=== PATIENT | male | born 1930 | race Caucasian/White ===

== ENCOUNTER 2017-08-07 15:51 | Inpatient (IN) ==
[2017-08-07 17:04] LABS: Basophils % 0.1 % (0.1-2.0); Eosinophils % 0.4 % (0.1-12.0); Hematocrit 52.3 % (42.0-52.0); Hemoglobin 16.5 g/dL (14.1-18.0); Lymphocytes % 11.3 K/mm3 (10-50); Mean Corpuscular HGB Conc 31.6 g/dL (31.8-35.4); Mean Corpuscular Hemoglobin 26.4 pg (27.0-31.2); Mean Corpuscular Volume 83.6 fl (80-94); Monocytes # 0.5 K/mm3 (0.1-1.0); Monocytes % 5.6 % (1.7-9.3); Neutrophils # 7.1 K/mm3 (1.8-7.8); Neutrophils % 82.6 % (37.0-80.0); Platelet Count 179 K/mm3 (142-424); Red Blood Count 6.26 M/mm3 (4.60-6.20); Red Cell Distribution Width 15.8 % (11.5-17.5); White Blood Count 8.6 K/mm3 (4.8-10.8)
[2017-08-07 17:14] LABS: Albumin Level 3.4 gm/dL (3.4-5.0); Albumin/Globulin Ratio 1.2 (1.1-1.8); Anion Gap 16.2 mEq/L (5-15); Bilirubin,Total 1.9 mg/dL (0.2-1.0); Calcium 9.5 mg/dL (8.5-10.1); Globulin 2.8 gm/dl (1.3-3.2); Total Protein,Serum 6.2 gm/dL (6.4-8.2)
[2017-08-07 17:17] LABS: Potassium 4.2 mmoL/L (3.5-5.1)
[2017-08-07 17:29] LABS: Thyroid Stimulating Hormone 7.96 uIU/ml (0.358-3.740)
--- NOTE | 2017-08-07 18:30 | Emergency Department Note ---
ED Disposition Clinical Impression: Rapid atrial fibrillation Disposition: Admitted As Inpatient Condition on Discharge: Fair Time of Disposition: 18:27 - Critical Care Critical Care Time: Yes Attestation: On 08/07/17, the high probability of a clinically significant, sudden or life threatening deterioration of the following system(s) required my full and direct attention, intervention and personal management. The time I documented below is in addition to time spent performing reported procedures but includes the following listed in this critical care notation. Total Critical Care Time: 75 Vital system(s) involved:: Circulatory Failure My critical care processes included: Assessment & monitoring of V/S, Initial and Re-exams, Data Review/Interpretation, Coordinating Care, Medication Orders and management, Documentation Medical Decision Making - Medical Records Medical records reviewed: Yes: I reviewed the patient's medical records. - [place] Inquiry Pt receiving controlled substance: No Vital Signs: 08/07/17 15:54 Temperature 97.4 F L Temperature Source Oral Pulse Rate [Right Radial] 124 H Respiratory Rate 20 Blood Pressure [Right Arm] 157/79 Blood Pressure Mean [Right Arm] 105 Blood Pressure Source [Right Arm] Automatic Cuff Blood Pressure Position [Right Arm] Sitting 02 Sat by Pulse Oximetry 95 Oxygen Delivery Method Room Air - Lab Data Lab results reviewed: Yes: I reviewed the patient's lab results. Lab Results 08/07/17 16:44: WBC 8.6, RBC 6.26 H, Hgb 16.5, Hct 52.3 H, MCV 83.6, MCH 26.4 L , MCHC 31.6 L, RDW 15.8, Plt Count 179, MPV 9.0, Neut % (Auto) 82.6 H, Lymph % ( Auto) 11.3, [place] % (Auto) 5.6, Eos % (Auto) 0.4, Baso % (Auto) 0.1, Neut # (Auto ) 7.1, Lymph # (Auto) 1.0, [place] # (Auto) 0.5, Eos # (Auto) 0.0, Baso # (Auto) 0.0 08/07/17 16:44: Sodium 141, Potassium 4.2, Chloride 105, Carbon Dioxide 24, Anion Gap 16.2 H, BUN 33 H, Creatinine 1.46 H, Estimated Creat Clear 39, Estimated GFR 46 L, Est GFR ( Amer) 56 L, Glucose 112 H, Calcium 9.5, Total Bilirubin 1.9 H, AST 26, ALT 31, Alkaline Phosphatase 90, Total Protein 6.2 L, Albumin 3.4, Globulin 2.8, Albumin/Globulin Ratio 1.2 08/07/17 16:44: Digoxin 0.23 L 08/07/17 16:44: Total Creatine Kinase 109, CK-MB (CK-2) 3.2, CK-MB (CK-2) Rel Index 2.9, Troponin I 0.09 H, TSH 7.96 H Result diagrams: 08/07/17 16:44 08/07/17 16:44 Orders (Tests/Meds): ED MEDICATIONS Generic Name Dose Route Start Last Admin Trade Name Freq PRN Reason Stop Dose Admin Diltiazem HCl 100 mg/ Sodium 100 mls @ 2.5 mls/hr 08/07/17 18:30 Chloride IV 09/06/17 18:29 .Q25H RADHA Protocol Discontinued Medications Generic Name Dose Route Start Last Admin Trade Name Freq PRN Reason Stop Dose Admin Sodium Chloride 1,000 mls @ 999 mls/hr 08/07/17 16:45 Sod Chlor 0.9% 1000ml Bag IV 08/07/17 17:45 .Q1H1M RADHA ORDERS Category Date Time Status Chest XR -- portable [XR chest portable] Stat Exams 08/07/17 16:29 Taken ECG Request by /Hao Stat Y 08/07/17 16:29 Ordered - Radiology Data #1 Image(s): Chest Image Reviewed: Yes I reviewed the patient's radiology results, Yes I reviewed the patient's radiology image - ECG Data Tracing #1 I reviewed this ECG and interpreted as documented below: Atrial fibrillation, heart rate 124, no acute ischemic changes Normal Sinus Rhythm: No Arrhythmias present: afib - Physician Consults Physician Consulted: Dr. Erick Silva Time: 18:28 Reason -: Admission, Pt condition Comment/Response: Advised of patient's condition and findings, agreeable with hospitalization. Dr. Silva requested the digoxin to be put on hold, and patient is to diltiazem. Will obtain cardiology consultation, at same time. Anxiety HPI - General Chief Complaint: Anxiety Stated Complaint: PANIC ATTACKS Time Seen by Provider: 08/07/17 16:30 Mode of Arrival: EMS Limitations: No Limitations Description of Symptoms (Recalled from ER Triage Doc. by RN): PT STATES HE HAS BEEN HAVING PANIC ATTACKS. PT IS KNOWN TO HAVE DEMENTIA AND PT'S SON THAT LIVES IN [place] CALLED THE [facility] TO COME DO A [employer] CHECK ON THE PT AND HE WAS BROUGHT TO THE ER FOR THE PANIC ATTACKS. - History of Present Illness HPI narrative: Patient is an 86-year-old noncompliant male, living by himself, presenting to the emergency room with occasional chest pains and exertional shortness of breath, describing fear of passing out, his anxiety and palpitations. Patient's physician, Dr. Silva, advised the patient has been declining over the past 6 months, where she was diagnosed with Parkinson's and dementia. It is questionable if patient has been compliant on his medications. MD complaint: heart racing, shortness of breath, other (Chest pain) Onset (ago): day(s) (2) Symptoms: dyspnea, chest pain, palpitations Severity: moderate Quality: intermittent Place: home History of similar episodes: Yes Provoking factors: emotional stress Relieving factors: nothing Exacerbating factors: thinking about event Associated symptoms: chest pain, shortness of breath, palpitations - Related Data Home Medications: Home Medications Medication Instructions Recorded Confirmed ARIPiprazole [Abilify] 4 mg PO HS 08/07/17 08/07/17 Aspirin [Aspirin 81mg chewable 81 mg PO DAILY 08/07/17 08/07/17 tab] Carbidopa/Levodopa [Carbidopa-Levo 1 each PO BID 08/07/17 08/07/17 25-100 mg Odt] Digoxin [Digoxin 0.125mg Tablet] 125 mcg PO DAILY 08/07/17 08/07/17 Donepezil HCl [Aricept 10mg tablet] 10 mg PO HS 08/07/17 08/07/17 Finasteride [Proscar 5mg Tablet] 5 mg PO DAILY 08/07/17 08/07/17 Levothyroxine Sodium 88 mcg PO DAILY 08/07/17 08/07/17 [Levothyroxine 75mcg (0.075mg) Tab] Pravastatin Sodium [Pravachol 20mg 20 mg PO HS 08/07/17 08/07/17 Tablet] Sertraline HCl [Zoloft 100mg 50 mg PO DAILY 08/07/17 08/07/17 tablet] Tamsulosin HCl [Flomax 0.4mg 0.4 mg PO DAILY 08/07/17 08/07/17 capsule] Allergies/Adverse Reactions: Allergies Allergy/AdvReac Type Severity Reaction Status Date / Time No Known Allergies Allergy Verified 08/07/17 16:03 [facility] History I have reviewed the patient's past medical history: Yes Medical History: Denies:: Cancer, Diabetes Mellitus Type 1, Diabetes Mellitus Type 2, MRSA Amputation: No Fractures: No - Social History Smoking Status: Never smoker Alcohol Intake: never - Psychiatric History Expresses thoughts of harming self/others: None Suicide Plan Description: No Plan ROS Obtained: Yes All systems reviewed & no additional complaints, Yes Systems reviewed as appropriate & no additional complaints - Cardiovascular Cardiovascular: Reports system reviewed and no additional complaints, except as docu, Reports as per HPI, Reports chest pain - Respiratory Respiratory: Yes system reviewed and no additional complaints, except as docu, Yes as per HPI, Yes dyspnea on exertion Physical Exam - General General appearance: alert, in distress (mild) - Head Head exam: atraumatic, normocephalic, normal inspection - Neck Neck exam: Present: normal inspection, full ROM, trachea midline. Absent: meningismus, lymphadenopathy - Chest Chest inspection: Present: normal inspection, symmetric chest wall rise. Absent : tenderness - Respiratory Respiratory exam: Present: normal lung sounds bilaterally. Absent: respiratory distress - Cardiovascular Cardiovascular exam: Present: tachycardia, irregular rhythm. Absent: JVD - Abdominal Exam Abdominal exam: Present: soft, normal bowel sounds. Absent: distention, tenderness, guarding - Extremities Exam Extremities exam: Present: normal inspection, full ROM, normal capillary refill. Absent: calf tenderness - Neurological Exam Neurological exam: Present: alert, oriented X3 - Psychiatric Psychiatric exam: Present: normal affect, normal mood - Skin Skin exam: Present: warm, dry, intact, normal color - Lymphatic Lymphatic Findings: no adenopathy
--- NOTE | 2017-08-07 22:49 | Progress Note ---
Internal Medicine - PN: Subj *Date: 08/07/17 *Time: 22:43 Interval history: The patient was admitted this evening through the emergency room. To the ER description he was uncomfortable having some chest pain felt short of breath and his heart was racing. He was found to be in uncontrolled atrial fibrillation with rapid ventricular response. He was treated with Cardizem in the emergency room which resulted in a slowing of his heart rate. He was admitted to the medical floor. I saw the patient after admission. He is without discomfort. He does seem to have some confusion but he does not hear very well. He responded for the most appropriately. He is not in any discomfort. The heart rate has slowed to the 70s and 80s. There are some runs of dysrhythmia that could be junctional or V. tach. There is some elevation of troponin The patient has declined over the past several months regarding his health. He is noncompliant on his medications. His home situation is bad with other people being in the household including relatives and others. He is hypothyroid and suffers from anxiety and depression. His atrial fibrillation has been long-standing. In 2012 he suffered a debilitating stroke and gradually was able to recover from that. He takes Xarelto 20 mg a day. He has been on diltiazem in the past but is not currently taking diltiazem. He is supposed to take digoxin daily but his blood levels were low. He takes donepezil 10 mg at bedtime. He has some parkinsonian symptoms and takes carbidopa levodopa 25/100 one tablet twice a day. He takes pravastatin 20 mg at bedtime. He is taking Abilify also 4 mg at bed time. Exam Vital signs and Labs for Last 24 Hours: Temp Pulse Resp BP Pulse Ox 98.6 F 70 22 142/89 100 08/07/17 20:00 08/07/17 20:00 08/07/17 20:00 08/07/17 20:00 08/07/17 20:00 Laboratory Results - last 24 hr 08/07/17 16:44: WBC 8.6, RBC 6.26 H, Hgb 16.5, Hct 52.3 H, MCV 83.6, MCH 26.4 L , MCHC 31.6 L, RDW 15.8, Plt Count 179, MPV 9.0, Neut % (Auto) 82.6 H, Lymph % ( Auto) 11.3, [place] % (Auto) 5.6, Eos % (Auto) 0.4, Baso % (Auto) 0.1, Neut # (Auto ) 7.1, Lymph # (Auto) 1.0, [place] # (Auto) 0.5, Eos # (Auto) 0.0, Baso # (Auto) 0.0 08/07/17 16:44: Sodium 141, Potassium 4.2, Chloride 105, Carbon Dioxide 24, Anion Gap 16.2 H, BUN 33 H, Creatinine 1.46 H, Estimated Creat Clear 39, Estimated GFR 46 L, Est GFR ( Amer) 56 L, Glucose 112 H, Calcium 9.5, Total Bilirubin 1.9 H, AST 26, ALT 31, Alkaline Phosphatase 90, Total Protein 6.2 L, Albumin 3.4, Globulin 2.8, Albumin/Globulin Ratio 1.2 08/07/17 16:44: Digoxin 0.23 L 08/07/17 16:44: Total Creatine Kinase 109, CK-MB (CK-2) 3.2, CK-MB (CK-2) Rel Index 2.9, Troponin I 0.09 H, TSH 7.96 H 08/07/17 19:32: Troponin I 0.10 H I & O for Last 24 hours: Intake & Output 08/05/17 08/06/17 08/07/17 08/08/17 11:59 11:59 11:59 11:59 Weight 189 lb 6 oz - Constitutional no acute distress Comments: He recognizes me. - *Routine HEENT Exam Eye: Present: PERRL ENT: Present: mucous membranes moist - *Routine Respiratory Exam Present: CTA bilaterally - *Routine Cardiovascular Exam Present: irregular rhythm (70-80 bpm at the present time with ectopics coming through occasionally.) - *Routine Abdominal Exam Present: soft. Absent: tenderness - *Routine Extremities Exam Absent: edema - *Routine Neurological Exam Seems to be fairly intact at the present time. Hearing is poor. Assessment and Plan (1) Rapid atrial fibrillation Current visit: Yes Status: Acute Category: Medical Code(s): I48.91 - Unspecified atrial fibrillation (2) Elevated troponin Current visit: Yes Status: Acute Category: Medical Code(s): R74.8 - Abnormal levels of other serum enzymes (3) Hypothyroidism (acquired) Current visit: Yes Status: Chronic Category: Medical Code(s): E03.9 - Hypothyroidism, unspecified (4) Chronic atrial fibrillation Current visit: Yes Status: Chronic Category: Medical Code(s): I48.2 - Chronic atrial fibrillation (5) Depression with anxiety Current visit: Yes Status: Chronic Category: Medical Code(s): F41.8 - Other specified anxiety disorders - Assessment and plan all Dx Assessment and Plan for all problems:: He has responded to the intravenous diltiazem. Medications will be adjusted tomorrow. Cardiac consult has been ordered.
[2017-08-07 23:59] LABS: Amphetamine/Metha Screen,Urine Negative ng/mL (<1000); Barbiturates Screen,Urine Negative ng/mL (<200); Benzodiazepines Screen,Urine Negative ng/mL (200); Cannabinoid Screen,Urine Negative ng/mL (<50); Cocaine Screen,Urine Negative ng/g (<300); Methadone Screen,Urine Negative ng/mL (<300); Opiate Screen,Urine Negative ng/mL (<300); Phencyclidine Screen,Urine Negative ng/mL (<25)
--- NOTE | 2017-08-08 07:48 | Pharmacy Consult Notes ---
[facility] Pharmacy VTE Monitoring - Patient Demographics Admission date: 08/07/17 Report Date: 08/08/17 Time: 07:47 Allergies/Adverse Reactions: Patient Allergies No Known Allergies Allergy (Verified 08/07/17 21:54) Height: 1.88 m Weight: 85.899 kg Patient Problems: Current Active Problems Rapid atrial fibrillation (Acute) Elevated troponin (Acute) Hypothyroidism (acquired) (Chronic) Chronic atrial fibrillation (Chronic) Depression with anxiety (Chronic) - VTE Risk Labs: VTE Related Lab Results Hgb 16.5 g/dL (14.1-18.0) 08/07/17 16:44 Hct 52.3 % (42.0-52.0) H 08/07/17 16:44 Plt Count 179 K/mm3 (142-424) 08/07/17 16:44 BUN 33 mg/dL (7-18) H 08/07/17 16:44 Creatinine 1.46 mg/dL (0.70-1.30) H 08/07/17 16:44 Estimated Creat Clear 39 mL/min (0-300) 08/07/17 16:44 Was VTE Risk Assessment Performed: No VTE Risk Level: Low Risk - Prophylaxis VTE Prophylaxis Ordered?: Yes Types of VTE Prophylaxis: TEDS Knee High, Pharmacological Location of Applied Device: Bilateral Lower Extremeties Pharmacologic Type: Other (XARELTO) - VTE Diagnosis Confirmed Treatment or plan recommended: Continue Current Treatment
--- NOTE | 2017-08-08 08:51 | Consult Report ---
History of Present Illness Consult date: 08/08/17 Requesting physician: Krissy Silva Consult reason: atrial fibrillation Chief complaint: anxiety, chest discomfort, palpitations Additional Medical History:: 1. Atrial fibrillation, chronic, on Xarelto therapy. 2. Dementia with history of previous CVA 3. Parkinson's per records 4. Depression per records History of present illness: Patient is an 86-year-old noncompliant male, living by himself, presenting to the emergency room with occasional chest pains and exertional shortness of breath, describing fear of passing out, his anxiety and palpitations. Patient's physician, Dr. Silva, advised the patient has been declining over the past 6 months, where she was diagnosed with Parkinson's and dementia. It is questionable if patient has been compliant on his medications. The above per ER physician Dr. Ochoa The patient is not a good historian. He is sleeping but will awaken to verbal and physical stimuli. He answers about 1 question maybe 2 before going back to sleep. The patient denies any chest pain. [facility] History Medical History: Reports:: Atrial Fibrillation, Hypertension Denies:: Cancer, Diabetes Mellitus Type 1, Diabetes Mellitus Type 2, Internal Pacemaker, MRSA Other Surgeries: No: Pacemaker Amputation: No Fractures: No - *Social History Smoking Status: Never smoker Alcohol Intake: never Occupational Status: unemployed - Psychiatric History Expresses thoughts of harming self/others: None Suicide Plan Description: No Plan *Family Hx:: Unable to obtain Meds Home Medications Medication Instructions Recorded Confirmed Type ARIPiprazole [Abilify] 4 mg PO HS 08/07/17 08/07/17 History Carbidopa/Levodopa [Carbidopa-Levo 1 each PO BID 08/07/17 08/07/17 History 25-100 mg Odt] Digoxin [Digoxin 0.125mg Tablet] 125 mcg PO DAILY 08/07/17 08/07/17 History Donepezil HCl [Aricept 10mg tablet] 10 mg PO HS 08/07/17 08/07/17 History Finasteride [Proscar 5mg Tablet] 5 mg PO DAILY 08/07/17 08/07/17 History Levothyroxine Sodium 88 mcg PO DAILY 08/07/17 08/07/17 History [Levothyroxine 75mcg (0.075mg) Tab] Pravastatin Sodium [Pravachol 20mg 20 mg PO HS 08/07/17 08/07/17 History Tablet] Sertraline HCl [Zoloft 100mg 50 mg PO DAILY 08/07/17 08/07/17 History tablet] Tamsulosin HCl [Flomax 0.4mg 0.4 mg PO DAILY 08/07/17 08/07/17 History capsule] ALPRAZolam [Xanax 0.5mg tab] 0.25 mg PO 0900,1200 PRN 08/08/17 08/08/17 History ALPRAZolam [Xanax 0.5mg tab] 0.5 mg PO 2100 PRN 08/08/17 08/08/17 History Fluticasone Propionate [Flonase 1 spr NS DAILY 08/08/17 08/08/17 History 50mcg nasal spray 16gm] Omeprazole [Omeprazole 20mg 20 mg PO DAILYP PRN 08/08/17 08/08/17 History Capsule] Rivaroxaban [Xarelto] 20 mg PO QPMWM 08/08/17 08/08/17 History Allergies Allergy/AdvReac Type Severity Reaction Status Date / Time No Known Allergies Allergy Verified 08/07/17 21:54 Review of Systems - Review of Systems Review of systems:: unable to obtain Exam Vital signs and Labs for Last 24 Hours: Temp Pulse Resp BP Pulse Ox 98.6 F 70 16 105/60 98 08/07/17 20:00 08/08/17 08:00 08/07/17 22:00 08/08/17 06:00 08/08/17 06:00 Laboratory Results - last 24 hr 08/07/17 16:44: WBC 8.6, RBC 6.26 H, Hgb 16.5, Hct 52.3 H, MCV 83.6, MCH 26.4 L , MCHC 31.6 L, RDW 15.8, Plt Count 179, MPV 9.0, Neut % (Auto) 82.6 H, Lymph % ( Auto) 11.3, [place] % (Auto) 5.6, Eos % (Auto) 0.4, Baso % (Auto) 0.1, Neut # (Auto ) 7.1, Lymph # (Auto) 1.0, [place] # (Auto) 0.5, Eos # (Auto) 0.0, Baso # (Auto) 0.0 08/07/17 16:44: Sodium 141, Potassium 4.2, Chloride 105, Carbon Dioxide 24, Anion Gap 16.2 H, BUN 33 H, Creatinine 1.46 H, Estimated Creat Clear 39, Estimated GFR 46 L, Est GFR ( Amer) 56 L, Glucose 112 H, Calcium 9.5, Total Bilirubin 1.9 H, AST 26, ALT 31, Alkaline Phosphatase 90, Total Protein 6.2 L, Albumin 3.4, Globulin 2.8, Albumin/Globulin Ratio 1.2 08/07/17 16:44: Digoxin 0.23 L 08/07/17 16:44: Total Creatine Kinase 109, CK-MB (CK-2) 3.2, CK-MB (CK-2) Rel Index 2.9, Troponin I 0.09 H, TSH 7.96 H 08/07/17 19:32: Troponin I 0.10 H 08/07/17 20:18: Troponin I 0.08 H 08/07/17 23:37: Urine Opiates Screen Negative, Ur Barbituates Screen Negative, Ur Phencyclidine Scrn Negative, Ur Amphetamines Screen Negative, U Methamphetamines Scrn Negative, U Benzodiazepines Scrn Negative, Urine Cocaine Screen Negative, U Marijuana (THC) Screen Negative 08/08/17 01:30: Troponin I 0.08 H I & O for Last 24 hours: Intake & Output 08/05/17 08/06/17 08/07/17 08/08/17 11:59 11:59 11:59 11:59 Intake Total 71 / 71 Output Total 400 / 400 Balance -329 / -329 Weight 189 lb 6 oz - *Routine Respiratory Exam Comments: Poor effort. - *Routine Cardiovascular Exam Present: irregularly irregular Comments: Telemetry shows atrial fibrillation with intermittent nonsustained episodes of SVT with aberrancy or V. tach. - *Routine Extremities Exam Present: edema - *Routine Neurological Exam Drowsy but awakens to verbal and physical stimuli. Assessment and Plan (1) Rapid atrial fibrillation Current visit: Yes Status: Acute Category: Medical Code(s): I48.91 - Unspecified atrial fibrillation (2) Elevated troponin Current visit: Yes Status: Acute Category: Medical Code(s): R74.8 - Abnormal levels of other serum enzymes (3) Hypothyroidism (acquired) Current visit: Yes Status: Chronic Category: Medical Code(s): E03.9 - Hypothyroidism, unspecified (4) Chronic atrial fibrillation Current visit: Yes Status: Chronic Category: Medical Code(s): I48.2 - Chronic atrial fibrillation (5) Depression with anxiety Current visit: Yes Status: Chronic Category: Medical Code(s): F41.8 - Other specified anxiety disorders - Assessment and plan all Dx Assessment and Plan for all problems:: 1. Borderline elevated troponins likely elevated due to A. fib with RVR. Will obtain echo to assess LVEF but will hold on further testing until cognitive status improves. 2. Continue rate control with combination of digoxin and low dose diltiazem as BP tolerates. 3. Medication compliance is an issue per records. 4. CHADS VASC score is at least 4 and pt is on Xarelto.
--- NOTE | 2017-08-08 09:26 | History & Physical Report ---
*Admission Date: 08/07/17 *Chief complaint: anxiety *History of present illness: - Mr Sidhu is an 86-year-old male, with a history of anxiety and depression, chronic atrial fibrillation, Parkinson's disease, and hypothyroidism who presented to the emergency room with occasional chest pains and exertional shortness of breath. He described fear of passing out, anxiety and palpitations. Patient's physician, Dr. Silva, advised that the patient had been declining over the past 6 months when he was diagnosed with Parkinson' s and dementia. It is questionable if patient has been compliant on his medications. At the time of this exam patient is nonverbal. He responds briefly with yes or no. He is extremely hard of hearing. Information is obtained from previous notes and ER record. Apparently a son stated that he had been having panic attacks and known to have dementia. This son who lives in [place] called the medical surgical tech to do a welfare check on the patient at which time he was brought to the emergency room. [facility] History Medical History: Reports:: Anxiety, Atrial Fibrillation, Cerebrovascular Accident, Dementia, Depression, Hyperlipidemia, Hypertension Denies:: Cancer, Diabetes Mellitus Type 1, Diabetes Mellitus Type 2, Internal Pacemaker, MRSA Other Medical History: Reports: Thyroid Disease Comment: Parkinson's disease Other Surgeries: Yes: Appendectomy. No: Pacemaker Amputation: No Fractures: No - *Social History Smoking Status: Never smoker Alcohol Intake: never Occupational Status: unemployed - Psychiatric History Expresses thoughts of harming self/others: None Suicide Plan Description: No Plan *Family Hx:: Unable to obtain Review of Systems - Review of Systems Review of systems:: unable to obtain Meds Home Medications Medication Instructions Recorded Confirmed Type ARIPiprazole [Abilify] 4 mg PO HS 08/07/17 08/07/17 History Carbidopa/Levodopa [Carbidopa-Levo 1 each PO BID 08/07/17 08/07/17 History 25-100 mg Odt] Digoxin [Digoxin 0.125mg Tablet] 125 mcg PO DAILY 08/07/17 08/07/17 History Donepezil HCl [Aricept 10mg tablet] 10 mg PO HS 08/07/17 08/07/17 History Finasteride [Proscar 5mg Tablet] 5 mg PO DAILY 08/07/17 08/07/17 History Levothyroxine Sodium 88 mcg PO DAILY 08/07/17 08/07/17 History [Levothyroxine 75mcg (0.075mg) Tab] Pravastatin Sodium [Pravachol 20mg 20 mg PO HS 08/07/17 08/07/17 History Tablet] Sertraline HCl [Zoloft 100mg 50 mg PO DAILY 08/07/17 08/07/17 History tablet] Tamsulosin HCl [Flomax 0.4mg 0.4 mg PO DAILY 08/07/17 08/07/17 History capsule] ALPRAZolam [Xanax 0.5mg tab] 0.25 mg PO 0900,1200 PRN 08/08/17 08/08/17 History ALPRAZolam [Xanax 0.5mg tab] 0.5 mg PO 2100 PRN 08/08/17 08/08/17 History Fluticasone Propionate [Flonase 1 spr NS DAILY 08/08/17 08/08/17 History 50mcg nasal spray 16gm] Omeprazole [Omeprazole 20mg 20 mg PO DAILYP PRN 08/08/17 08/08/17 History Capsule] Rivaroxaban [Xarelto] 20 mg PO QPMWM 08/08/17 08/08/17 History Allergies Allergy/AdvReac Type Severity Reaction Status Date / Time No Known Allergies Allergy Verified 08/07/17 21:54 Exam Vital signs and Labs for Last 24 Hours: Temp Pulse Resp BP Pulse Ox 98.6 F 70 16 105/60 98 08/07/17 20:00 08/08/17 08:00 08/07/17 22:00 08/08/17 06:00 08/08/17 06:00 Laboratory Results - last 24 hr 08/07/17 16:44: WBC 8.6, RBC 6.26 H, Hgb 16.5, Hct 52.3 H, MCV 83.6, MCH 26.4 L , MCHC 31.6 L, RDW 15.8, Plt Count 179, MPV 9.0, Neut % (Auto) 82.6 H, Lymph % ( Auto) 11.3, [place] % (Auto) 5.6, Eos % (Auto) 0.4, Baso % (Auto) 0.1, Neut # (Auto ) 7.1, Lymph # (Auto) 1.0, Bureau # (Auto) 0.5, Eos # (Auto) 0.0, Baso # (Auto) 0.0 08/07/17 16:44: Sodium 141, Potassium 4.2, Chloride 105, Carbon Dioxide 24, Anion Gap 16.2 H, BUN 33 H, Creatinine 1.46 H, Estimated Creat Clear 39, Estimated GFR 46 L, Est GFR ( Amer) 56 L, Glucose 112 H, Calcium 9.5, Total Bilirubin 1.9 H, AST 26, ALT 31, Alkaline Phosphatase 90, Total Protein 6.2 L, Albumin 3.4, Globulin 2.8, Albumin/Globulin Ratio 1.2 08/07/17 16:44: Digoxin 0.23 L 08/07/17 16:44: Total Creatine Kinase 109, CK-MB (CK-2) 3.2, CK-MB (CK-2) Rel Index 2.9, Troponin I 0.09 H, TSH 7.96 H 08/07/17 19:32: Troponin I 0.10 H 08/07/17 20:18: Troponin I 0.08 H 08/07/17 23:37: Urine Opiates Screen Negative, Ur Barbituates Screen Negative, Ur Phencyclidine Scrn Negative, Ur Amphetamines Screen Negative, U Methamphetamines Scrn Negative, U Benzodiazepines Scrn Negative, Urine Cocaine Screen Negative, U Marijuana (THC) Screen Negative 08/08/17 01:30: Troponin I 0.08 H I & O for Last 24 hours: Intake & Output 08/05/17 08/06/17 08/07/17 08/08/17 11:59 11:59 11:59 11:59 Intake Total 71 / 71 Output Total 400 / 400 Balance -329 / -329 Weight 189 lb 6 oz Radiology Reports for the Last 24 Hours: 08/07/2017 MPRESSION: Left lower lobe pneumonia with effusion with cardiomegaly - Constitutional no acute distress, somnolent - *Routine HEENT Exam Head: Present: normocephalic Eye: Present: PERRL ENT: Present: mucous membranes dry - *Routine Neck Exam Absent: carotid bruit, lymphadenopathy, thyromegaly - *Routine Respiratory Exam Comments: bilateral rhonchi > on the left - *Routine Cardiovascular Exam Present: irregular rhythm Comments: monitor showing At Fib with controled V response - *Routine Abdominal Exam Present: soft, normoactive bowel sounds. Absent: tenderness, distended - *Routine Extremities Exam Present: edema (greater on the left) - *Routine Neurological Exam somnolent H&P: Result - Labs Labs: Short CBC 08/07/17 Range/Units 16:44 WBC 8.6 (4.8-10.8) K/mm3 Hgb 16.5 (14.1-18.0) g/dL Hct 52.3 H (42.0-52.0) % Plt Count 179 (142-424) K/mm3 BMP 08/07/17 16:44 Sodium 141 Potassium 4.2 Chloride 105 Carbon Dioxide 24 BUN 33 H Creatinine 1.46 H Glucose 112 H Calcium 9.5 Cardiac Enzymes 08/07/17 08/07/17 08/07/17 Range/Units 16:44 19:32 20:18 Total Creatine Kinase 109 (39-308) U/L CK-MB (CK-2) 3.2 (0.0-3.6) ng/ml Troponin I 0.09 H 0.10 H 0.08 H (0.00-0.06) ng/ml 08/08/17 Range/Units 01:30 Total Creatine Kinase (39-308) U/L CK-MB (CK-2) (0.0-3.6) ng/ml Troponin I 0.08 H (0.00-0.06) ng/ml Liver Function 08/07/17 Range/Units 16:44 Total Bilirubin 1.9 H (0.2-1.0) mg/dL AST 26 (15-37) U/L ALT 31 (12-78) U/L Alkaline Phosphatase 90 (46-116) U/L Albumin 3.4 (3.4-5.0) gm/dL Assessment and Plan (1) Rapid atrial fibrillation Current visit: Yes Status: Acute Category: Medical Code(s): I48.91 - Unspecified atrial fibrillation (2) Elevated troponin Current visit: Yes Status: Acute Category: Medical Code(s): R74.8 - Abnormal levels of other serum enzymes (3) Hypothyroidism (acquired) Current visit: Yes Status: Chronic Category: Medical Code(s): E03.9 - Hypothyroidism, unspecified (4) Chronic atrial fibrillation Current visit: Yes Status: Chronic Category: Medical Code(s): I48.2 - Chronic atrial fibrillation (5) Depression with anxiety Current visit: Yes Status: Chronic Category: Medical Code(s): F41.8 - Other specified anxiety disorders (6) Altered mental state Current visit: Yes Status: Acute Category: Medical Code(s): R41.82 - Altered mental status, unspecified - Assessment and plan all Dx Assessment and Plan for all problems:: Cardiology has seen pt with the following recommendations: 1. Borderline elevated troponins likely elevated due to A. fib with RVR. Will obtain echo to assess LVEF but will hold on further testing until cognitive status improves. 2. Continue rate control with combination of digoxin and low dose diltiazem as BP tolerates. CXR does state that he has pneumonia. Rocephin and duonebs have been started.
--- NOTE | 2017-08-08 09:27 | Progress Note ---
Internal Medicine - PN: Subj *Date: 08/08/17 *Time: 09:23 Interval history: He is quite somnolent this morning. He does have periods where he will arouse and respond. He is receiving an echocardiogram at this time. His heart rate is in the 70s and 80s. He still atrial fibrillation. He has no respiratory distress. He has minimal leg edema. He is so noncompliant on his medications that in the hospital receiving medications he may be having sedation from that. Exam Vital signs and Labs for Last 24 Hours: Temp Pulse Resp BP Pulse Ox 98.6 F 70 16 105/60 98 08/07/17 20:00 08/08/17 08:00 08/07/17 22:00 08/08/17 06:00 08/08/17 06:00 Laboratory Results - last 24 hr 08/07/17 16:44: WBC 8.6, RBC 6.26 H, Hgb 16.5, Hct 52.3 H, MCV 83.6, MCH 26.4 L , MCHC 31.6 L, RDW 15.8, Plt Count 179, MPV 9.0, Neut % (Auto) 82.6 H, Lymph % ( Auto) 11.3, [place] % (Auto) 5.6, Eos % (Auto) 0.4, Baso % (Auto) 0.1, Neut # (Auto ) 7.1, Lymph # (Auto) 1.0, [place] # (Auto) 0.5, Eos # (Auto) 0.0, Baso # (Auto) 0.0 08/07/17 16:44: Sodium 141, Potassium 4.2, Chloride 105, Carbon Dioxide 24, Anion Gap 16.2 H, BUN 33 H, Creatinine 1.46 H, Estimated Creat Clear 39, Estimated GFR 46 L, Est GFR ( Amer) 56 L, Glucose 112 H, Calcium 9.5, Total Bilirubin 1.9 H, AST 26, ALT 31, Alkaline Phosphatase 90, Total Protein 6.2 L, Albumin 3.4, Globulin 2.8, Albumin/Globulin Ratio 1.2 08/07/17 16:44: Digoxin 0.23 L 08/07/17 16:44: Total Creatine Kinase 109, CK-MB (CK-2) 3.2, CK-MB (CK-2) Rel Index 2.9, Troponin I 0.09 H, TSH 7.96 H 08/07/17 19:32: Troponin I 0.10 H 08/07/17 20:18: Troponin I 0.08 H 08/07/17 23:37: Urine Opiates Screen Negative, Ur Barbituates Screen Negative, Ur Phencyclidine Scrn Negative, Ur Amphetamines Screen Negative, U Methamphetamines Scrn Negative, U Benzodiazepines Scrn Negative, Urine Cocaine Screen Negative, U Marijuana (THC) Screen Negative 08/08/17 01:30: Troponin I 0.08 H Laboratory Tests 08/07/17 08/07/17 16:44 16:44 WBC 8.6 Hgb 16.5 Hct 52.3 H Sodium 141 Potassium 4.2 Chloride 105 BUN 33 H Creatinine 1.46 H I & O for Last 24 hours: Intake & Output 08/05/17 08/06/17 08/07/17 08/08/17 11:59 11:59 11:59 11:59 Intake Total 71 / 71 Output Total 400 / 400 Balance -329 / -329 Weight 189 lb 6 oz Radiology Reports for the Last 24 Hours: The chest x-ray suggests a left lower lobe pneumonia with effusion. - Constitutional somnolent - *Routine Respiratory Exam Present: CTA bilaterally. Absent: respiratory distress - *Routine Cardiovascular Exam Present: irregular rhythm (70-88) - *Routine Abdominal Exam Present: soft. Absent: tenderness - *Routine Extremities Exam Present: edema Assessment and Plan (1) Rapid atrial fibrillation Current visit: Yes Status: Acute Category: Medical Code(s): I48.91 - Unspecified atrial fibrillation (2) Elevated troponin Current visit: Yes Status: Acute Category: Medical Code(s): R74.8 - Abnormal levels of other serum enzymes (3) Hypothyroidism (acquired) Current visit: Yes Status: Chronic Category: Medical Code(s): E03.9 - Hypothyroidism, unspecified (4) Chronic atrial fibrillation Current visit: Yes Status: Chronic Category: Medical Code(s): I48.2 - Chronic atrial fibrillation (5) Depression with anxiety Current visit: Yes Status: Chronic Category: Medical Code(s): F41.8 - Other specified anxiety disorders (6) Pneumonia of left lower lobe due to infectious organism Current visit: Yes Status: Acute Category: Medical Code(s): J18.1 - Lobar pneumonia, unspecified organism
[2017-08-09 06:03] LABS: Albumin Level 2.6 gm/dL (3.4-5.0); Anion Gap 12.1 mEq/L (5-15); Bilirubin,Total 1.3 mg/dL (0.2-1.0); Globulin 2.6 gm/dl (1.3-3.2); Potassium 4.1 mmoL/L (3.5-5.1); Total Protein,Serum 5.2 gm/dL (6.4-8.2)
[2017-08-09 06:13] LABS: Calcium 8.2 mg/dL (8.5-10.1)
--- NOTE | 2017-08-09 08:08 | Progress Note ---
Internal Medicine - PN: Josselin *Date: 08/09/17 *Time: 08:05 Interval history: Patient states he is feeling well this morning. He denies any pain. He states he slept off and on throughout the night. He ate all of his breakfast this morning. Exam Vital signs and Labs for Last 24 Hours: Temp Pulse Resp BP Pulse Ox 98.3 F 81 16 121/73 98 08/08/17 20:00 08/09/17 06:16 08/08/17 20:00 08/09/17 06:00 08/09/17 06:16 Laboratory Results - last 24 hr 08/09/17 05:15: Sodium 141, Potassium 4.1, Chloride 106, Carbon Dioxide 27, Anion Gap 12.1, BUN 26 H, Creatinine 1.15 D, Estimated Creat Clear 59, Estimated GFR 61, Est GFR ( Amer) 73 D, Glucose 126 H, Calcium 8.2 L D, Total Bilirubin 1.3 H, AST 16 D, ALT 22 D, Alkaline Phosphatase 78, Total Protein 5.2 L, Albumin 2.6 L, Globulin 2.6, Albumin/Globulin Ratio 1.0 L I & O for Last 24 hours: Intake & Output 08/06/17 08/07/17 08/08/17 08/09/17 11:59 11:59 11:59 11:59 Intake Total 661 / 661 740 / 740 Output Total 400 / 400 500 / 500 Balance 261 / 261 240 / 240 Weight 189 lb 6 oz 191 lb 5 oz - Constitutional no acute distress - *Routine Respiratory Exam Present: rhonchi (faint rhonchi in the left lung) - *Routine Cardiovascular Exam Present: irregularly irregular - *Routine Abdominal Exam Present: soft, normoactive bowel sounds. Absent: tenderness - *Routine Extremities Exam Absent: edema Assessment and Plan (1) Rapid atrial fibrillation Current visit: Yes Status: Acute Category: Medical Code(s): I48.91 - Unspecified atrial fibrillation (2) Elevated troponin Current visit: Yes Status: Acute Category: Medical Code(s): R74.8 - Abnormal levels of other serum enzymes (3) Hypothyroidism (acquired) Current visit: Yes Status: Chronic Category: Medical Code(s): E03.9 - Hypothyroidism, unspecified (4) Chronic atrial fibrillation Current visit: Yes Status: Chronic Category: Medical Code(s): I48.2 - Chronic atrial fibrillation (5) Depression with anxiety Current visit: Yes Status: Chronic Category: Medical Code(s): F41.8 - Other specified anxiety disorders (6) Altered mental state Current visit: Yes Status: Acute Category: Medical Code(s): R41.82 - Altered mental status, unspecified - Assessment and plan all Dx Assessment and Plan for all problems:: Patient is much better today. He is off the Cardizem drip. His heart rate is controlled. Can possibly move out of stepdown today. Will discuss further care with Dr. nesbitt.
--- NOTE | 2017-08-09 09:06 | Progress Note ---
Subjective Date: 08/09/17 Time: 09:01 Principal diagnosis: SOA Interval history: 86 yo WM in bed in NAD. More awake today. Denies any chest pains. Relates some recurrent episodes of SOA recently. He relates that a "demon" comes upon him at times and causes him to not take his medications. When trying to inquire further it seems this is in conjunction with his SOA episodes. Exam Vital signs and Labs for Last 24 Hours: Temp Pulse Resp BP Pulse Ox 98.3 F 86 16 121/73 98 08/08/17 20:00 08/09/17 08:21 08/08/17 20:00 08/09/17 06:00 08/09/17 06:16 Laboratory Results - last 24 hr 08/09/17 05:15: Sodium 141, Potassium 4.1, Chloride 106, Carbon Dioxide 27, Anion Gap 12.1, BUN 26 H, Creatinine 1.15 D, Estimated Creat Clear 59, Estimated GFR 61, Est GFR ( Amer) 73 D, Glucose 126 H, Calcium 8.2 L D, Total Bilirubin 1.3 H, AST 16 D, ALT 22 D, Alkaline Phosphatase 78, Total Protein 5.2 L, Albumin 2.6 L, Globulin 2.6, Albumin/Globulin Ratio 1.0 L I & O for Last 24 hours: Intake & Output 08/06/17 08/07/17 08/08/17 08/09/17 11:59 11:59 11:59 11:59 Intake Total 661 / 661 740 / 740 Output Total 400 / 400 500 / 500 Balance 261 / 261 240 / 240 Weight 189 lb 6 oz 191 lb 5 oz - *Routine Neck Exam Absent: JVD, carotid bruit - *Routine Respiratory Exam Comments: Decreased sounds at the bases bilaterally with some faint rales. No appreciable wheezing or rhonchi noted. - *Routine Cardiovascular Exam Comments: Distant heart sounds but irregularly irregular. - *Routine Extremities Exam Comments: Patient is wearing support stockings but has 1+ pitting edema of the lower extremities. Progress Note: A&P (1) Rapid atrial fibrillation Status: Acute Current Visit: Yes (2) Elevated troponin Status: Acute Current Visit: Yes (3) Hypothyroidism (acquired) Status: Chronic Current Visit: Yes (4) Chronic atrial fibrillation Status: Chronic Current Visit: Yes (5) Depression with anxiety Status: Chronic Current Visit: Yes (6) Altered mental state Status: Acute Current Visit: Yes Assessment and Plan for All Diagnoses:: Echocardiogram report reveals ejection fraction in the 25-30% range with left ventricular dictation. Patient has some mild mitral regurgitation with severe tricuspid regurgitation and moderate reduction of right ventricular function. This is new finding. Patient is more awake today. There is concern regarding his ability to be compliant with medications. In light of his new cardiomyopathy, will discontinue diltiazem and start standard cardiomyopathy/congestive heart failure therapy including Coreg, PERRI inhibitor, spironolactone, Lasix and digoxin. In light of his elevated troponins, would recommend evaluation with cardiac catheterization and consideration of AICD in the future due to recent nonsustained ventricular tachycardia noted on telemetry. He is a candidate for a life vest. Risks, benefits and procedure explained to the patient and he agrees to proceed. Patient's son (previous power of estate attorney) was contacted and notified who concurs. Also discussed with Dr. Silva, his primary care physician.
--- NOTE | 2017-08-10 10:09 | Progress Note ---
Subjective Date: 08/10/17 Time: 10:06 Principal diagnosis: SOA Interval history: 86-year-old white male in bed in no acute distress. Lights that he did not sleep very well last night. Denies any chest pain, pressure or tightness. He states his breathing is better. He states he ambulated yesterday without difficulty. Patient is concerned regarding "panic attacks" which may be his description of episodes of shortness of breath/congestive heart failure. With his severe cardiomyopathy, I did discuss wearing a LifeVest with the patient and he wished to talk with Dr. Silva before deciding. Exam Vital signs and Labs for Last 24 Hours: Temp Pulse Resp BP Pulse Ox 97 F L 107 H 13 121/82 96 08/10/17 08:00 08/10/17 09:02 08/10/17 08:00 08/10/17 08:00 08/10/17 09:02 I & O for Last 24 hours: Intake & Output 08/07/17 08/08/17 08/09/17 08/10/17 11:59 11:59 11:59 11:59 Intake Total 661 / 661 740 / 740 320 / 320 Output Total 400 / 400 500 / 500 1425 / 1425 Balance 261 / 261 240 / 240 -1105 / -1105 Weight 189 lb 6 oz 191 lb 5 oz 191 lb 5.004 oz - *Routine Respiratory Exam Comments: Basilar rales noted bilaterally. No wheezing noted. - *Routine Cardiovascular Exam Present: murmur, irregularly irregular - *Routine Extremities Exam Absent: edema - *Routine Neurological Exam Present: alert, moving all extremities Progress Note: A&P (1) Rapid atrial fibrillation Status: Acute Current Visit: Yes (2) Elevated troponin Status: Acute Current Visit: Yes (3) Hypothyroidism (acquired) Status: Chronic Current Visit: Yes (4) Chronic atrial fibrillation Status: Chronic Current Visit: Yes (5) Depression with anxiety Status: Chronic Current Visit: Yes (6) Altered mental state Status: Acute Current Visit: Yes Assessment and Plan for All Diagnoses:: 1. Continue current medical therapy including Coreg, PERRI inhibitor, spironolactone and Lasix therapy. Will plan to titrate coreg and lisinopril as BP tolerates. 2. Continue Xarelto therapy for A. fib and thromboembolic prophylaxis. 3. LifeVest recommended but will wait to see what patient decides after talking to Dr. Silva.
--- NOTE | 2017-08-10 12:19 | Progress Note ---
Internal Medicine - PN: Subj *Date: 08/10/17 *Time: 12:16 Interval history: Patient states he is doing well this morning. He denies any pain or shortness of breath. He did eat most of his breakfast and slept well last night. Exam Vital signs and Labs for Last 24 Hours: Temp Pulse Resp BP Pulse Ox 97 F L 107 H 13 121/82 96 08/10/17 08:00 08/10/17 09:02 08/10/17 08:00 08/10/17 08:00 08/10/17 09:02 I & O for Last 24 hours: Intake & Output 08/08/17 08/09/17 08/10/17 08/11/17 11:59 11:59 11:59 11:59 Intake Total 661 / 661 740 / 740 320 / 320 Output Total 400 / 400 500 / 500 1425 / 1425 Balance 261 / 261 240 / 240 -1105 / -1105 Weight 189 lb 6 oz 191 lb 5 oz 191 lb 5.004 oz Radiology Reports for the Last 24 Hours: Heart Cath IMPRESSION: 1. Mild nonflow limiting coronary artery disease 2. Dilated cardiomyopathy which is not ischemically mediated 3. Severe left ventricular dilatation with severely reduced ejection fraction 4. Elevated LVEDP consistent with decompensated congestive heart failure PLAN: 1. Standard therapy for systolic heart failure 2. Diuresis 3. Daily baby aspirin 4. Risk factor modification - Constitutional no acute distress - *Routine Respiratory Exam Present: CTA bilaterally - *Routine Cardiovascular Exam Present: RRR - *Routine Abdominal Exam Present: soft, normoactive bowel sounds. Absent: tenderness - *Routine Extremities Exam Absent: edema Assessment and Plan (1) Rapid atrial fibrillation Current visit: Yes Status: Acute Category: Medical Code(s): I48.91 - Unspecified atrial fibrillation (2) Elevated troponin Current visit: Yes Status: Acute Category: Medical Code(s): R74.8 - Abnormal levels of other serum enzymes (3) Hypothyroidism (acquired) Current visit: Yes Status: Chronic Category: Medical Code(s): E03.9 - Hypothyroidism, unspecified (4) Chronic atrial fibrillation Current visit: Yes Status: Chronic Category: Medical Code(s): I48.2 - Chronic atrial fibrillation (5) Depression with anxiety Current visit: Yes Status: Chronic Category: Medical Code(s): F41.8 - Other specified anxiety disorders (6) Altered mental state Current visit: Yes Status: Acute Category: Medical Code(s): R41.82 - Altered mental status, unspecified (7) Dilated cardiomyopathy Current visit: Yes Status: Acute Category: Medical Code(s): I42.0 - Dilated cardiomyopathy (8) CHF (congestive heart failure) Current visit: Yes Status: Acute Category: Medical Code(s): I50.9 - Heart failure, unspecified - Assessment and plan all Dx Assessment and Plan for all problems:: Patient has spoken with Dr. nesbitt and is still unsure if he would like to wear a LifeVest. He can possibly discharge today. Will discuss further care with Dr. nesbitt.
--- NOTE | 2017-08-10 12:54 | Discharge Summary ---
General - General Admission date:: 08/07/17 Discharge date: 08/10/17 HPI HPI: Mr Sidhu is an 86-year-old male, with a history of anxiety and depression, chronic atrial fibrillation, Parkinson's disease, and hypothyroidism who presented to the emergency room with occasional chest pains and exertional shortness of breath. He described fear of passing out, anxiety and palpitations. Patient's physician, Dr. Silva, advised that the patient had been declining over the past 6 months when he was diagnosed with Parkinson' s and dementia. It is questionable if patient has been compliant on his medications. At the time of this exam patient is nonverbal. He responds briefly with yes or no. He is extremely hard of hearing. Information is obtained from previous notes and ER record. Apparently a son stated that he had been having panic attacks and known to have dementia. His son who lives in [place] called the skip pitman to do a welfare check on the patient at which time he was brought to the emergency room. Hospital Course Hospital Course: The patient was started on a cardizem drip and his afib responded. Cardiology was consulted. Cardiology saw the patient and he was weaned off the drip and started on a combination of digoxin and low dose diltiazem. His CXR showed a LLL pneumonia with effusion. He was started on rocephin and nebs. The patient did well and began to wake up and respond. He began eating. His echo showed an EF of 29%, therefore cardiology recommended a heart cath. Cardiology discontinued his diltiazem and started standard cardiomyopathy/congestive heart failure therapy including Coreg, PERRI inhibitor, spironolactone, Lasix, and digoxin. They also felt he would be a candidate for a life vest and needed to continue his xarelto. His heart cath showed dilated cardiomyopathy and mild CAD. He did not want a life vest. He was stable to be discharged to [facility] for rehab and continued abx for his pneumonia. Objective Vital signs: Temp Pulse Resp BP Pulse Ox 97 F L 107 H 13 121/82 96 08/10/17 08:00 08/10/17 09:02 08/10/17 08:00 08/10/17 08:00 08/10/17 09:02 Narrative: - Constitutional no acute distress, somnolent - *Routine HEENT Exam Head: Present: normocephalic Eye: Present: PERRL ENT: Present: mucous membranes dry - *Routine Neck Exam Absent: carotid bruit, lymphadenopathy, thyromegaly - *Routine Respiratory Exam Comments: bilateral rhonchi > on the left - *Routine Cardiovascular Exam Present: irregular rhythm Comments: monitor showing At Fib with controled V response - *Routine Abdominal Exam Present: soft, normoactive bowel sounds. Absent: tenderness, distended - *Routine Extremities Exam Present: edema (greater on the left) - *Routine Neurological Exam somnolent DS: Diagnosis - Discharge Diagnosis (1) Rapid atrial fibrillation Status: Acute (2) Elevated troponin Status: Acute (3) Hypothyroidism (acquired) Status: Chronic (4) Chronic atrial fibrillation Status: Chronic (5) Depression with anxiety Status: Chronic (6) Altered mental state Status: Acute (7) Dilated cardiomyopathy Status: Acute (8) CHF (congestive heart failure) Status: Acute Discharge Plan - Patient Discharge Instructions ACTIVITY: Continue current activity DIET: continue same diet Patient Instructions: DI for Atrial Fibrillation - Follow up Plan Follow up with: Krissy Silva MD [Primary Care Provider] - Disposition: er [facility] Home Medications: Home Medications Medication Instructions Recorded Confirmed Type Carbidopa/Levodopa [Carbidopa-Levo 1 each PO BID 08/07/17 08/07/17 History 25-100 mg Odt] Digoxin [Digoxin 0.125mg Tablet] 125 mcg PO DAILY 08/07/17 08/07/17 History Donepezil HCl [Aricept 10mg tablet] 10 mg PO HS 08/07/17 08/07/17 History Finasteride [Proscar 5mg Tablet] 5 mg PO DAILY 08/07/17 08/07/17 History Levothyroxine Sodium 88 mcg PO DAILY 08/07/17 08/07/17 History [Levothyroxine 75mcg (0.075mg) Tab] Pravastatin Sodium [Pravachol 20mg 20 mg PO HS 08/07/17 08/07/17 History Tablet] Sertraline HCl [Zoloft 100mg 50 mg PO DAILY 08/07/17 08/07/17 History tablet] Tamsulosin HCl [Flomax 0.4mg 0.4 mg PO DAILY 08/07/17 08/07/17 History capsule] Rivaroxaban [Xarelto] 20 mg PO QPMWM 08/08/17 08/08/17 History Prescriptions/Medication Reconciliation: New Aspirin [Aspirin 81mg chewable tab] 81 mg PO DAILY tab.chew Lisinopril [Zestril 5mg Tablet] 5 mg PO DAILY #30 tab Spironolactone [Aldactone 25mg Tab] 25 mg PO DAILY #30 tab Cefdinir [Omnicef 300mg Capsule] 300 mg PO BID #14 cap Carvedilol [Coreg 3.125mg Tablet] 3.125 mg PO BID #60 tab Furosemide [Lasix 40mg tablet] 40 mg PO DAILY #30 tab Continue Levothyroxine Sodium [Levothyroxine 75mcg (0.075mg) Tab] 88 mcg PO DAILY Tamsulosin HCl [Flomax 0.4mg capsule] 0.4 mg PO DAILY Sertraline HCl [Zoloft 100mg tablet] 50 mg PO DAILY Pravastatin Sodium [Pravachol 20mg Tablet] 20 mg PO HS Finasteride [Proscar 5mg Tablet] 5 mg PO DAILY Digoxin [Digoxin 0.125mg Tablet] 125 mcg PO DAILY Carbidopa/Levodopa [Carbidopa-Levo 25-100 mg Odt] 1 each PO BID Rivaroxaban [Xarelto] 20 mg PO QPMWM Donepezil HCl [Aricept 10mg tablet] 10 mg PO HS Discontinued ARIPiprazole [Abilify] 4 mg PO HS ALPRAZolam [Xanax 0.5mg tab] 0.25 mg PO 0900,1200 PRN PRN Reason: Anxiety ALPRAZolam [Xanax 0.5mg tab] 0.5 mg PO 2100 PRN PRN Reason: Anxiety Omeprazole [Omeprazole 20mg Capsule] 20 mg PO DAILYP PRN PRN Reason: GERD Fluticasone Propionate [Flonase 50mcg nasal spray 16gm] 1 spr NS DAILY
[2017-08-10 13:15] VITALS: BP 137/69
== END 2017-08-10 15:30 ==
LOC: ER 15:51 → 2ND 19:10 → ICU 08-09 22:08
PROVIDERS: ADMIT Family Medicine; ATTEND Family Medicine

== ENCOUNTER 2018-10-27 21:30 | Observation (INO) ==
[2018-10-27 21:47] LABS: Basophils # 0.1 K/mm3 (0-0.2); Basophils % 0.9 % (0.1-2.0); Eosinophils % 0.7 % (0.1-12.0); Hematocrit 47.9 % (42.0-52.0); Hemoglobin 14.8 g/dL (14.1-18.0); Lymphocytes % 32.9 % (10-50); Mean Platelet Volume 8.3 fl (7.4-10.4); Monocytes # 0.5 K/mm3 (0.1-1.0); Monocytes % 7.7 % (1.7-9.3); Neutrophils # 3.4 K/mm3 (1.8-7.8); Neutrophils % 57.8 % (37.0-80.0); Platelet Count 233 K/mm3 (142-424); Red Blood Count 5.38 M/mm3 (4.60-6.20); Red Cell Distribution Width 14.4 % (11.5-17.5)
[2018-10-27 21:58] LABS: Albumin Level 3.4 gm/dL (3.4-5.0); Anion Gap 13.6 mEq/L (5-15); Bilirubin,Direct 0.4 mg/dL (0.0-0.2); Bilirubin,Indirect 1.4 mg/dL (0.0-0.9); Bilirubin,Total 1.8 mg/dL (0.2-1.0); Calcium 8.8 mg/dL (8.5-10.1); Total Protein,Serum 6.3 gm/dL (6.4-8.2)
--- NOTE | 2018-10-28 00:13 | Emergency Department Note ---
ED Disposition Clinical Impression: Hypothyroidism (acquired), LV dysfunction, Chronic atrial fibrillation CHF (congestive heart failure) Qualifiers: Heart failure type: other Qualified Code(s): I50.9 - Heart failure, unspecified Disposition: Admitted as Observation Condition on Discharge: Fair Referrals: Krissy Silva MD [Primary Care Provider] - - Critical Care Critical Care Time: No Attestation: On 10/27/18, the high probability of a clinically significant, sudden or life threatening deterioration of the following system(s) required my full and direct attention, intervention and personal management. The time I documented below is in addition to time spent performing reported procedures but includes the follo wing listed in this critical care notation. Medical Decision Making - Medical Records Medical records reviewed: Yes: I reviewed the patient's medical records. - [place] Inquiry Pt receiving controlled substance: No Vital Signs: 10/27/18 22:31 Temperature 98.2 F Temperature Source Oral Pulse Rate [Right] 122 H Respiratory Rate 18 Blood Pressure [Right Arm] 142/95 H Blood Pressure Mean [Right Arm] 110 Blood Pressure Source [Right Arm] Automatic Cuff Blood Pressure Position [Right Arm] Sitting 02 Sat by Pulse Oximetry 96 Oxygen Delivery Method Room Air - Lab Data Lab results reviewed: Yes: I reviewed the patient's lab results. Lab Results 10/27/18 21:35: WBC 6.0, RBC 5.38, Hgb 14.8, Hct 47.9, MCV 89.0, MCH 27.6, MCHC 31.0 L, RDW 14.4, Plt Count 233, MPV 8.3, Neut % (Auto) 57.8, Lymph % (Auto) 32.9, [place] % (Auto) 7.7, Eos % (Auto) 0.7, Baso % (Auto) 0.9, Neut # (Auto) 3.4, Lymph # (Auto) 2.0, [place] # (Auto) 0.5, Eos # (Auto) 0.0, Baso # (Auto) 0.1 10/27/18 21:35: Sodium 142, Potassium 4.6, Chloride 106, Carbon Dioxide 27, Anion Gap 13.6, BUN 22 H, Creatinine 1.29, Estimated Creat Clear 54, Estimated GFR 53 L, Est GFR ( Amer) 64, Glucose 103, Calcium 8.8, Total Bilirubin 1.8 H, Direct Bilirubin 0.4 H, Indirect Bilirubin 1.4 H, AST 25, ALT 27, Alkaline Phosphatase 98, Total Protein 6.3 L, Albumin 3.4 10/27/18 21:35: B-Natriuretic Peptide 632 H 10/27/18 21:35: Troponin I 0.02, Amylase 37, Lipase 174, TSH 7.93 H D, Thyroxine (T4) 8.8 10/28/18 00:20: Lactate 1.3 10/28/18 02:10: Troponin I < 0.02 Result diagrams: 10/27/18 21:35 10/27/18 21:35 Orders (Tests/Meds): ED MEDICATIONS Discontinued Medications Generic Name Dose Route Start Last Admin Trade Name Freq PRN Reason Stop Dose Admin Ioversol 75 ml 10/28/18 02:51 10/28/18 02:52 Rad-Optiray 350 100ml Vial IV 10/28/18 02:52 75 ml ONCE ONE Administration Protocol Sodium Chloride 10 ml 10/28/18 02:51 10/28/18 02:52 Rad-Saline Flush 10ml Syringe IV 10/28/18 02:52 10 ml ONCE ONE Administration ORDERS Category Date Time Status CT abdomen pelvis w con Stat Cat Scan 10/28/18 00:15 Taken XR acute abdomen series Stat Exams 10/27/18 21:32 Taken - Radiology Data #1 Image(s): Chest Image Reviewed: Yes I reviewed the patient's radiology image Preliminary Findings: Abnormal (chronic changes ) - CT Data CT Scan: Abdomen, Pelvis Time Received: 04:[address] Reviewed: Yes: I have viewed the radiologist's interpretation Preliminary Findings: Abnormal (nonspecific - see chart ) - ECG Data Tracing #1 Arrhythmias present: afib Ischemic changes: non-specific ST-T wave changes ECG compared to prior tracings: there are no significant changes Resp/SOB HPI - General Chief Complaint: Shortness of Breath/Dyspnea Stated Complaint: SOA Time Seen by Provider: 10/27/18 23:00 Mode of Arrival: Ambulatory Source of Information: Patient, Relative, Medical Record Limitations: No Limitations Description of Symptoms (Recalled from ER Triage Doc. by RN): Pt c/o SOA worse today - History of Present Illness pt presents with sob and possible chest tightness with hx of recent visit to ed - pt has dec ejection fraction and missed follow up with pcp - has chronic a stacie HERNANDEZ Complaint: shortness of breath Onset (ago): day(s) Severity: moderate Consistency/Duration: constant Known history of: congestive heart failure Associated symptoms: denies other symptoms - Related Data Home oxygen amount: none Home Medications Medication Instructions Recorded Confirmed Carbidopa/Levodopa [Carbidopa-Levo 1 each PO BID 08/07/17 04/30/18 25-100 mg Odt] Digoxin [Digoxin 0.125mg Tablet] 125 mcg PO DAILY 08/07/17 04/30/18 Donepezil HCl [Aricept 10mg 10 mg PO HS 08/07/17 04/30/18 tablet] Finasteride [Proscar 5mg Tablet] 5 mg PO DAILY 08/07/17 04/30/18 Levothyroxine Sodium 88 mcg PO DAILY 08/07/17 04/30/18 [Levothyroxine 75mcg (0.075mg) Tab] Pravastatin Sodium [Pravachol 20mg 20 mg PO HS 08/07/17 04/30/18 Tablet] Sertraline HCl [Zoloft 100mg 50 mg PO DAILY 08/07/17 04/30/18 tablet] Tamsulosin HCl [Flomax 0.4mg 0.4 mg PO DAILY 08/07/17 04/30/18 capsule] rivaroxaban 20 mg tablet 20 mg PO DAILY tab 04/24/18 10/24/18 Furosemide [Lasix 40mg tablet] 40 mg PO DAILY 10/24/18 10/24/18 Previous Rx's Medication Instructions Recorded Aspirin [Aspirin 81mg chewable 81 mg PO DAILY tab.chew 08/10/17 tab] Carvedilol [Coreg 3.125mg Tablet] 3.125 mg PO BID #60 tab 08/10/17 Lisinopril [Zestril 5mg 5 mg PO DAILY #30 tab 08/10/17 Tablet] losartan 50 mg tablet 50 mg PO DAILY #30 tab 04/24/18 spironolactone 50 mg tablet 50 mg PO BID #60 tab 04/24/18 Allergies Allergy/AdvReac Type Severity Reaction Status Date / Time No Known Allergies Allergy Verified 04/30/18 11:34 [facility] History - Hepatitis A Screen Drug use history?: No High risk sexual behaviors?: No History of sexually transmitted infection?: No Currently employed?: No Childcare worker?: No Do you have indoor plumbing?: Yes Do you have electricity?: Yes Attestation statement:: This patient has been screened for Hepatitis A risk factors. I have reviewed the patient's past medical history: Yes Medical History: Reports:: Anxiety, Atrial Fibrillation, Cerebrovascular Accident, Dementia, Depression, Hyperlipidemia, Hypertension Denies:: Cancer, Diabetes Mellitus Type 1, Diabetes Mellitus Type 2, Internal Pacemaker, MRSA Other Medical History: Reports: Thyroid Disease Comment: Parkinson's disease Other Surgeries: Yes: Appendectomy. No: Pacemaker Amputation: No Fractures: No - Social History Smoking Status: Never smoker Alcohol Intake: never Substance Use Type: denies use Occupational Status: retired - Psychiatric History Pschychiatric History:: Reports:: Anxiety, Depression Family Hx:: Unable to obtain ROS Obtained: Yes All systems reviewed & no additional complaints - Constitutional Constitutional: Denies fever(s) - Eyes Eyes: Denies change in vision - ENT Ears, Nose, Mouth, and Throat: Denies sore throat - Cardiovascular Cardiovascular: Reports chest pain, Reports dyspnea - Respiratory Respiratory: No cough, Yes dyspnea, No coughing up blood - Gastrointestinal Gastrointestingal: Reports: abdominal pain, nausea - Genitourinary Male Genitourinary: Denies hematuria - Musculoskeletal Musculoskeletal: Denies joint pain - Integumentary/Breasts Skin/Breast: Denies rash - Neurologic Neurologic: Denies seizure-like activity Physical Exam - General General appearance: alert, in no apparent distress - Head Head exam: normocephalic - Eye Eye exam: Present: PERRL, EOMI. Absent: scleral icterus - ENT ENT exam: Present: mucous membranes dry - Neck Neck exam: Present: trachea midline - Respiratory Respiratory exam: Present: other (dec bs bilat ). Absent: respiratory distress - Cardiovascular Cardiovascular exam: Present: irregular rhythm, systolic murmur, +S4 - Abdominal Exam Abdominal exam: Present: soft, tenderness Abdominal tenderness: Present: epigastrium, mild - Extremities Exam Extremities exam: Present: pedal edema. Absent: calf tenderness - Neurological Exam Neurological exam: Present: alert, CN II-XII intact - Psychiatric Psychiatric exam: Present: normal affect - Skin Skin exam: Absent: rash
[2018-10-28 00:39] LABS: Thyroid Stimulating Hormone 7.93 uIU/ml (0.358-3.740)
[2018-10-28 07:32] LABS: Basophils % 0.5 % (0.1-2.0); Eosinophils % 0.6 % (0.1-12.0); Hematocrit 47.2 % (42.0-52.0); Hemoglobin 14.9 g/dL (14.1-18.0); Lymphocytes # 1.6 K/mm3 (0.7-4.5); Lymphocytes % 28.4 % (10-50); Mean Corpuscular HGB Conc 31.5 g/dL (31.8-35.4); Mean Corpuscular Volume 89.7 fl (80-94); Mean Platelet Volume 8.6 fl (7.4-10.4); Monocytes # 0.4 K/mm3 (0.1-1.0); Monocytes % 6.3 % (1.7-9.3); Neutrophils # 3.6 K/mm3 (1.8-7.8); Neutrophils % 64.4 % (37.0-80.0); Platelet Count 218 K/mm3 (142-424); Red Blood Count 5.26 M/mm3 (4.60-6.20); Red Cell Distribution Width 14.4 % (11.5-17.5); White Blood Count 5.6 K/mm3 (4.8-10.8)
[2018-10-28 08:21] LABS: Anion Gap 14.4 mEq/L (5-15); Calcium 8.9 mg/dL (8.5-10.1)
--- NOTE | 2018-10-28 11:34 | History & Physical Report ---
*Admission Date: 10/28/18 *Chief complaint: Abdominal distention and shortness of breath *History of present illness: Patient is a 88-year-old male came to our ED twice in the past 7 days for dyspnea, mild distention and peripheral edema. His Lasix was increased to 60 mg in the last ED visit. However he presented to our ED last night with the abdominal distention and mild shortness of breath despite being compliant with his Lasix and spironolactone. He denies any pain or tenderness to the abdomen, no guarding noted in the abdomen as well, denies nausea vomiting and diarrhea. His shortness of breath is mild and only occurs upon exertion. His work-up in the ED was negative except for elevated BNP and TSH. Imaging official reading still pending. In the ED he was given a dose of IV Lasix 40 mg in the ED. During rounds this morning, patient mentions that he is feeling slightly better. He still on 2 L of oxygen. He mentioned that he is not on any home oxygen. His abdomen is still distended. [facility] History I have reviewed the patient's past medical history: Yes Medical History: Reports:: Anxiety, Arrhythmia, Atrial Fibrillation, Cardiomyopathy, Congestive Heart Failure, Coronary Artery Disease, Cerebrovascular Accident, Dementia, Depression, Hyperlipidemia, Hypertension Denies:: Cancer, Diabetes Mellitus Type 1, Diabetes Mellitus Type 2, Internal Pacemaker, MRSA *Have you ever received a pneumonia vaccine?: No *Have you received a flu vaccine this season?: No Other Medical History: Reports: Thyroid Disease Other Surgeries: Yes: Appendectomy. No: Pacemaker Amputation: No Fractures: No - *Social History Educational Level: Completed Grade School Smoking Status: Never smoker Alcohol Intake: never Substance Use Type: denies use *Occupational Status:: retired *Travel in the last 8 weeks: None - Psychiatric History Expresses thoughts of harming self/others: None Suicide Plan Description: No Plan Pschychiatric History:: Reports:: Anxiety, Depression Family Hx:: No significant family history Review of Systems - Constitutional Denies increased appetite, Denies lack of energy - Eyes Denies change in vision, Denies itchy eyes - ENT Denies change in voice, Denies difficulty swallowing - *Cardiovascular Denies chest pain, Denies chest pain at rest, Denies chest pain with activity, Denies leg pain with activity, Denies excessive sweating, Denies shortness of breath, Denies shortness of breath with activity - *Respiratory Reports shortness of breath (Mild), Denies chest congestion, Denies cough - *Gastrointestinal Denies belching, Denies constipation - *Musculoskeletal Denies joint pain, Denies decreased muscle mass - Integumentary/Breasts Denies bleeding lesions - *Neurologic Denies abnormal hearing, Denies seizure-like activity - Psychiatric Denies lack of enjoyment - Endocrine Denies excessive sweating - Hematologic/Lymphatic Denies easy bruising - Allergic/Immunologic Denies lip swelling Meds Home Medications Medication Instructions Recorded Confirmed Type Carbidopa/Levodopa [Carbidopa-Levo 1 each PO BID 08/07/17 10/28/18 History 25-100 mg Odt] Digoxin [Digoxin 0.125mg Tablet] 125 mcg PO DAILY 08/07/17 04/30/18 History Donepezil HCl [Aricept 10mg 10 mg PO HS 08/07/17 10/28/18 History tablet] Finasteride [Proscar 5mg Tablet] 5 mg PO DAILY 08/07/17 04/30/18 History Levothyroxine Sodium 88 mcg PO DAILY 08/07/17 10/28/18 History [Levothyroxine 75mcg (0.075mg) Tab] Pravastatin Sodium [Pravachol 20mg 20 mg PO HS 08/07/17 10/28/18 History Tablet] Sertraline HCl [Zoloft 100mg 50 mg PO DAILY 08/07/17 04/30/18 History tablet] Tamsulosin HCl [Flomax 0.4mg 0.4 mg PO DAILY 08/07/17 10/28/18 History capsule] Aspirin [Aspirin 81mg chewable 81 mg PO DAILY tab.chew 08/10/17 04/30/18 Rx tab] Lisinopril [Zestril 5mg 5 mg PO DAILY #30 tab 08/10/17 04/30/18 Rx Tablet] losartan 50 mg tablet 50 mg PO DAILY #30 tab 04/24/18 04/30/18 Rx rivaroxaban 20 mg tablet 20 mg PO DAILY tab 04/24/18 10/24/18 History Furosemide [Lasix 40mg tablet] 40 mg PO DAILY 10/24/18 10/28/18 History Carvedilol [Coreg 3.125mg Tablet] 3.125 mg PO BID 10/28/18 10/28/18 History Memantine HCl [Memantine 5mg 5 mg PO BID 10/28/18 10/28/18 History Tablet] Rivaroxaban [Xarelto 20mg Tablet] 20 mg PO DAILY 10/28/18 10/28/18 History Spironolactone [Spironolactone 25 mg PO DAILY 10/28/18 10/28/18 History 25mg Tablet] Allergies Allergy/AdvReac Type Severity Reaction Status Date / Time No Known Allergies Allergy Verified 04/30/18 11:34 Exam Vital signs and Labs for Last 24 Hours: Temp Pulse Resp BP Pulse Ox 97.5 F L 86 18 109/71 L 98 10/28/18 09:39 10/28/18 10:19 10/28/18 09:39 10/28/18 09:39 10/28/18 09:39 Laboratory Results - last 24 hr 10/27/18 21:35: WBC 6.0, RBC 5.38, Hgb 14.8, Hct 47.9, MCV 89.0, MCH 27.6, MCHC 31.0 L, RDW 14.4, Plt Count 233, MPV 8.3, Neut % (Auto) 57.8, Lymph % (Auto) 32.9, [place] % (Auto) 7.7, Eos % (Auto) 0.7, Baso % (Auto) 0.9, Neut # (Auto) 3.4, Lymph # (Auto) 2.0, [place] # (Auto) 0.5, Eos # (Auto) 0.0, Baso # (Auto) 0.1 10/27/18 21:35: Sodium 142, Potassium 4.6, Chloride 106, Carbon Dioxide 27, Anion Gap 13.6, BUN 22 H, Creatinine 1.29, Estimated Creat Clear 54, Estimated GFR 53 L, Est GFR ( Amer) 64, Glucose 103, Calcium 8.8, Total Bilirubin 1.8 H, Direct Bilirubin 0.4 H, Indirect Bilirubin 1.4 H, AST 25, ALT 27, Alkaline Phosphatase 98, Total Protein 6.3 L, Albumin 3.4 10/27/18 21:35: B-Natriuretic Peptide 632 H 10/27/18 21:35: Troponin I 0.02, Amylase 37, Lipase 174, TSH 7.93 H D, Thyroxine (T4) 8.8 10/28/18 00:20: Lactate 1.3 10/28/18 02:10: Troponin I < 0.02 10/28/18 02:10: Digoxin < 0.20 L 10/28/18 06:25: WBC 5.6, RBC 5.26, Hgb 14.9, Hct 47.2, MCV 89.7, MCH 28.2, MCHC 31.5 L, RDW 14.4, Plt Count 218, MPV 8.6, Neut % (Auto) 64.4, Lymph % (Auto) 28.4, [place] % (Auto) 6.3, Eos % (Auto) 0.6, Baso % (Auto) 0.5, Neut # (Auto) 3.6, Lymph # (Auto) 1.6, [place] # (Auto) 0.4, Eos # (Auto) 0.0, Baso # (Auto) 0.0 10/28/18 06:25: Sodium 143, Potassium 4.4, Chloride 106, Carbon Dioxide 27, Anion Gap 14.4, BUN 20 H, Creatinine 1.26, Estimated Creat Clear 57, Estimated GFR 54 L, Est GFR ( Amer) 66, Glucose 114 H, Calcium 8.9, Magnesium 1.7, Troponin I 0.03 I & O for Last 24 hours: Intake & Output 10/25/18 10/26/18 10/27/18 10/28/18 11:59 11:59 11:59 11:59 Intake Total 480 / 480 Output Total 1000 / 1000 Balance -520 / -520 Weight 212 lb 2 oz - *Routine HEENT Exam Head: Present: normocephalic Eye: Present: EOMI, PERRL ENT: Present: mucous membranes moist - *Routine Neck Exam Present: supple. Absent: lymphadenopathy - *Routine Respiratory Exam Present: CTA bilaterally - *Routine Cardiovascular Exam Present: irregularly irregular - *Routine Abdominal Exam Present: soft, normoactive bowel sounds, distended. Absent: tenderness - *Routine Extremities Exam Present: edema (1+ pitting edema to midcalf bilateral). Absent: cyanosis, clubbing - *Routine Skin Exam Present: warm. Absent: rash - *Routine Neurological Exam Present: alert, oriented X3 Assessment and Plan (1) CHF (congestive heart failure) Current visit: Yes Status: Acute Qualifiers: Heart failure type: other Qualified Code(s): I50.9 - Heart failure, unspecified Category: Medical Code(s): I50.9 - Heart failure, unspecified (2) LV dysfunction Current visit: Yes Status: Acute Category: Medical Code(s): I51.9 - Heart disease, unspecified (3) Chronic atrial fibrillation Current visit: Yes Status: Chronic Category: Medical Code(s): I48.2 - Chronic atrial fibrillation (4) Hypothyroidism (acquired) Current visit: Yes Status: Chronic Category: Medical Code(s): E03.9 - Hypothyroidism, unspecified (5) Bilateral lower extremity edema Current visit: No Status: Acute Category: Medical Code(s): R60.0 - Localized edema (6) A-fib Current visit: No Status: Chronic Qualifiers: Atrial fibrillation type: chronic Qualified Code(s): I48.2 - Chronic atrial fibrillation Category: Medical Code(s): I48.91 - Unspecified atrial fibrillation (7) Depression with anxiety Current visit: No Status: Chronic Category: Medical Code(s): F41.8 - Other specified anxiety disorders - Assessment and plan all Dx Assessment and Plan for all problems:: We will stop Lasix as he is on both Lasix and spironolactone. Will increase the spironolactone to 50 mg. Increase his levothyroxine 200 mcg given his elevated TSH. We will try to wean him off oxygen today as he does not use oxygen at home.
--- NOTE | 2018-10-28 14:03 | Pharmacy Consult Notes ---
[facility] Pharmacy VTE Monitoring - Patient Demographics Admission date: 10/28/18 Report Date: 10/28/18 Time: 14:03 Allergies/Adverse Reactions: Patient Allergies No Known Allergies Allergy (Verified 04/30/18 11:34) Height: 1.88 m Weight: 96.218 kg Patient Problems: Current Active Problems Hypothyroidism (acquired) (Chronic) Chronic atrial fibrillation (Chronic) CHF (congestive heart failure) (Acute) LV dysfunction (Acute) - VTE Risk Labs: VTE Related Lab Results Hgb 14.9 g/dL (14.1-18.0) 10/28/18 06:25 Hct 47.2 % (42.0-52.0) 10/28/18 06:25 Plt Count 218 K/mm3 (142-424) 10/28/18 06:25 BUN 20 mg/dL (7-18) H 10/28/18 06:25 Creatinine 1.26 mg/dL (0.70-1.30) 10/28/18 06:25 Estimated Creat Clear 57 mL/min (50-200) 10/28/18 06:25 VTE Score: 3 VTE Risk Level: Low Risk - Prophylaxis Types of VTE Prophylaxis: TEDS Knee High (ROBERTO HOSE ORDERED) Location of Applied Device: Refused
--- NOTE | 2018-10-29 08:45 | Progress Note ---
Internal Medicine - PN: Subj *Date: 10/29/18 *Time: 08:42 Interval history: Patient states he discontinued his oxygen this a.m. He cannot decide if he is short of breath or not. His abdomen feels funny. He denies chest pain and abdominal pain. He is voiding without difficulty. Bowels have moved. Is he is eating without problems. He denies heart pain and nausea. Exam Vital signs and Labs for Last 24 Hours: Temp Pulse Resp BP Pulse Ox 97.8 F 78 16 129/73 95 10/29/18 07:55 10/29/18 08:37 10/29/18 07:55 10/29/18 07:55 10/29/18 07:55 Laboratory Results - last 24 hr 10/28/18 06:25: Sodium 143, Potassium 4.4, Chloride 106, Carbon Dioxide 27, Anion Gap 14.4, BUN 20 H, Creatinine 1.26, Estimated Creat Clear 57, Estimated GFR 54 L, Est GFR ( Amer) 66, Glucose 114 H, Calcium 8.9, Magnesium 1.7, Troponin I 0.03 10/28/18 11:00: Troponin I 0.03 I & O for Last 24 hours: Intake & Output 10/26/18 10/27/18 10/28/18 10/29/18 11:59 11:59 11:59 11:59 Intake Total 480 / 480 2248 / 2248 Output Total 1000 / 1500 1700 / 1700 Balance -520 / -1020 548 / 548 Weight 204 lb 0.005 oz 184 lb 4 oz Radiology Reports for the Last 24 Hours: 10/28/2018 CT of abdomen and pelvis IMPRESSION: --------- 1. Cardiomegaly with moderate bilateral pleural effusions. .Bibasilar airspace disease appears to be mainly atelectasis. .Question mild interstitial edema 2. Abdominal ascites-mild to moderate volume. .Moderate free fluid at pelvic basin & surrounding bowel loops towards pelvis. Minimal fluid surrounds liver & spleen and along the gutters bilaterally. Generalized edematous state may reflect hypoproteinemia or modest CHF 3. Prominent sigmoid diverticulosis. No discrete acute focal diverticulitis. . Mild wall thickening sigmoid most likely reflects the long-standing diverticulosis process. . Faint stranding adjacent to sigmoid colon & other loops likely related to the ascites 4. Air-fluid levels transverse & right colon reflecting liquid stool. Also Increased fluid at mildly dilatation proximal small bowel. Findings reflect possible Enterocolitis or ileus 5. Mild wall thickening gallbladder may reflect edematous state 6. Incidental Small 5.6 mm enhancing focus posterior right lobe liver. This benefit from a follow-up CT abdomen hemangioma protocol within the next 2-3 months.. 7. Small 2 mm nonspecific calculus right kidney 10/27/2018 CT of the chest ..... IMPRESSION...... UPRIGHT CXR: Cardiomegaly. Small bilateral pleural effusions. Mild vascular engorgement but no overt CHF Minimal airspace disease left lung base, favor mainly atelectasis. ABDOMEN. No free air Mildly distended small bowel loops with mild/moderate air-fluid levels small bowel.. Minimal liquid stool right and transverse colon Findings suspect for Enterocolitis,... Or less likely possibly ileus. ... - Constitutional no acute distress Comments: Appears comfortable - *Routine Respiratory Exam Present: CTA bilaterally (Anteriorly and posteriorly) - *Routine Cardiovascular Exam Present: irregular rhythm - *Routine Abdominal Exam Present: soft, normoactive bowel sounds. Absent: tenderness Comments: Large - *Routine Extremities Exam Present: edema (Trace bilateral. ROBERTO hose on.). Absent: calf tenderness - *Routine Neurological Exam Present: alert, oriented X3 Assessment and Plan (1) CHF (congestive heart failure) Current visit: Yes Status: Acute Qualifiers: Heart failure type: other Qualified Code(s): I50.9 - Heart failure, unspecified Category: Medical Code(s): I50.9 - Heart failure, unspecified (2) LV dysfunction Current visit: Yes Status: Acute Category: Medical Code(s): I51.9 - Heart disease, unspecified (3) Chronic atrial fibrillation Current visit: Yes Status: Chronic Category: Medical Code(s): I48.2 - Chronic atrial fibrillation (4) Hypothyroidism (acquired) Current visit: Yes Status: Chronic Category: Medical Code(s): E03.9 - Hypothyroidism, unspecified (5) Bilateral lower extremity edema Current visit: No Status: Acute Category: Medical Code(s): R60.0 - Localized edema (6) A-fib Current visit: No Status: Chronic Qualifiers: Atrial fibrillation type: chronic Qualified Code(s): I48.2 - Chronic atrial fibrillation Category: Medical Code(s): I48.91 - Unspecified atrial fibrillation (7) Depression with anxiety Current visit: No Status: Chronic Category: Medical Code(s): F41.8 - Other specified anxiety disorders (8) Ascites Current visit: Yes Status: Acute Category: Medical Code(s): R18.8 - Other ascites - Assessment and plan all Dx Assessment and Plan for all problems:: Will restart Lasix daily. Saline lock.
--- NOTE | 2018-10-30 08:45 | Progress Note ---
Internal Medicine - PN: Subj *Date: 10/30/18 *Time: 08:42 Interval history: Patient is feeling much better. He is ready to go home. He is ambulated in the room and feels better after being up. His abdomen feels less full and his legs are less edematous. His bowels are moving normally and he is voiding QS. He is eating well without difficulty. Exam Vital signs and Labs for Last 24 Hours: Temp Pulse Resp BP Pulse Ox 98.9 F 80 17 150/80 H 97 10/30/18 08:00 10/30/18 08:32 10/30/18 08:00 10/30/18 08:00 10/30/18 08:00 I & O for Last 24 hours: Intake & Output 10/27/18 10/28/18 10/29/18 10/30/18 11:59 11:59 11:59 11:59 Intake Total 480 / 480 2248 / 2248 1500 / 1500 Output Total 1000 / 1500 1700 / 1700 700 / 700 Balance -520 / -1020 548 / 548 800 / 800 Weight 204 lb 0.005 oz 184 lb 3.986 oz 184 lb 3.986 oz - Constitutional no acute distress Comments: Sitting on the bedside and appears very comfortable - *Routine Respiratory Exam Present: CTA bilaterally (Anteriorly and posteriorly) - *Routine Cardiovascular Exam Present: RRR - *Routine Abdominal Exam Present: soft, normoactive bowel sounds Comments: Less distended - *Routine Extremities Exam Present: edema (Trace to 1+. ROBERTO holes are on.) - *Routine Neurological Exam Present: alert, oriented X3 Assessment and Plan (1) CHF (congestive heart failure) Current visit: Yes Status: Acute Qualifiers: Heart failure type: other Qualified Code(s): I50.9 - Heart failure, unspecified Category: Medical Code(s): I50.9 - Heart failure, unspecified (2) LV dysfunction Current visit: Yes Status: Acute Category: Medical Code(s): I51.9 - Heart disease, unspecified (3) Chronic atrial fibrillation Current visit: Yes Status: Chronic Category: Medical Code(s): I48.2 - Chronic atrial fibrillation (4) Hypothyroidism (acquired) Current visit: Yes Status: Chronic Category: Medical Code(s): E03.9 - Hypothyroidism, unspecified (5) Bilateral lower extremity edema Current visit: No Status: Acute Category: Medical Code(s): R60.0 - Localized edema (6) A-fib Current visit: No Status: Chronic Qualifiers: Atrial fibrillation type: chronic Qualified Code(s): I48.2 - Chronic atrial fibrillation Category: Medical Code(s): I48.91 - Unspecified atrial fibrillation (7) Depression with anxiety Current visit: No Status: Chronic Category: Medical Code(s): F41.8 - Other specified anxiety disorders (8) Ascites Current visit: Yes Status: Acute Category: Medical Code(s): R18.8 - Other ascites - Assessment and plan all Dx Assessment and Plan for all problems:: He is ready for discharge.
--- NOTE | 2018-10-30 22:58 | Discharge Summary ---
General - General Admission date:: 10/28/18 Discharge date: 10/30/18 HPI HPI: Patient is an 88-year-old male who came to our ED twice in the past 7 days for dyspnea, mild abdominal distention, and peripheral edema. His Lasix was increased to 60 mg in the last ED visit. However he presented to our ED last night with the abdominal distention and mild shortness of breath despite being compliant with his Lasix and spironolactone. He denies any pain or tenderness to the abdomen, no guarding noted in the abdomen as well, denies nausea vomiting and diarrhea. His shortness of breath is mild and only occurs upon exertion. His work-up in the ED was negative except for elevated BNP and TSH. Imaging official reading still pending. In the ED he was given a dose of IV Lasix 40 mg. During rounds this morning, patient mentions that he is feeling slightly better. He still on 2 L of oxygen. He mentioned that he is not on any home oxygen. His abdomen is still distended. Hospital Course Hospital Course: The patient's BNP was elevated at 632 and his TSH was elevated at 7.93. His total bilirubin was also elevated at 1.8. His Lasix was discontinued and his spironolactone was increased to 50 mg. His levothyroxine was increased to 200 mcg given his elevated TSH. He had a CT of the abdomen and pelvis which showed cardiomegaly and bilateral pleural effusions, abdominal ascites with moderate free fluid at the pelvic basin and surrounding bowel loops towards the pelvis. There was also minimal fluid surrounding the liver and spleen. The generalized edematous state likely reflected hypoproteinemia or CHF according to radiology. CT also showed enterocolitis versus an ileus and some mild wall thickening of the gallbladder. There was an incidental small 5.6 mm enhancing focus posterior right lobe of the liver. Radiology recommended a CT abdomen hemangioma protocol within the next 2 to 3 months. There was also a 2 mm calculus in the right kidney. The patient's oxygen was weaned. He was able to eat without problems. His Lasix was restarted and he was saline locked. He began feeling much better and was ambulating around in the room. His abdomen felt less full and his legs were less edematous. He was stable to be discharged home. Objective Vital signs: Temp Pulse Resp BP Pulse Ox 98.9 F 80 17 150/80 H 97 10/30/18 08:00 10/30/18 08:32 10/30/18 08:00 10/30/18 08:00 10/30/18 08:00 Narrative: - *Routine HEENT Exam Head: Present: normocephalic Eye: Present: EOMI, PERRL ENT: Present: mucous membranes moist - *Routine Neck Exam Present: supple. Absent: lymphadenopathy - *Routine Respiratory Exam Present: CTA bilaterally - *Routine Cardiovascular Exam Present: irregularly irregular - *Routine Abdominal Exam Present: soft, normoactive bowel sounds, distended. Absent: tenderness - *Routine Extremities Exam Present: edema (1+ pitting edema to midcalf bilateral). Absent: cyanosis, clubbing - *Routine Skin Exam Present: warm. Absent: rash - *Routine Neurological Exam Present: alert, oriented X3 DS: Diagnosis - Discharge Diagnosis (1) CHF (congestive heart failure) Status: Acute (2) LV dysfunction Status: Acute (3) Chronic atrial fibrillation Status: Chronic (4) Hypothyroidism (acquired) Status: Chronic (5) Bilateral lower extremity edema Status: Acute (6) A-fib Status: Chronic (7) Depression with anxiety Status: Chronic (8) Ascites Status: Acute Discharge Plan - Patient Discharge Instructions ACTIVITY: Ambulate as tolerated DIET: advance to your usual diet Patient Instructions: Hypothyroidism, Heart Failure, Atrial Fibrillation, DI for Heart Failure, DI for Atrial Fibrillation, DI for Hypothyroidism - Follow up Plan Disposition: Home, Self-Fpc Medications: Home Medications Medication Instructions Recorded Confirmed Type Carbidopa/Levodopa [Carbidopa-Levo 1 each PO BID 08/07/17 10/28/18 History 25-100 mg Odt] Digoxin [Digoxin 0.125mg Tablet] 125 mcg PO DAILY 08/07/17 10/28/18 History Donepezil HCl [Aricept 10mg 10 mg PO HS 08/07/17 10/28/18 History tablet] Pravastatin Sodium [Pravachol 20mg 20 mg PO HS 08/07/17 10/28/18 History Tablet] Sertraline HCl [Zoloft 100mg 50 mg PO DAILY 08/07/17 10/28/18 History tablet] Tamsulosin HCl [Flomax 0.4mg 0.4 mg PO DAILY 08/07/17 10/28/18 History capsule] Aspirin [Aspirin 81mg chewable 81 mg PO DAILY tab.chew 08/10/17 10/28/18 Rx tab] Lisinopril [Zestril 5mg 5 mg PO DAILY #30 tab 08/10/17 10/28/18 Rx Tablet] losartan 50 mg tablet 50 mg PO DAILY #30 tab 04/24/18 10/28/18 Rx Furosemide [Lasix 40mg tablet] 40 mg PO DAILY 10/24/18 10/28/18 History Carvedilol [Coreg 3.125mg Tablet] 3.125 mg PO BID 10/28/18 10/28/18 History Memantine HCl [Memantine 5mg 5 mg PO BID 10/28/18 10/28/18 History Tablet] Rivaroxaban [Xarelto 20mg Tablet] 20 mg PO DAILY 10/28/18 10/28/18 History Finasteride [Proscar 5mg Tablet] 5 mg PO DAILY #30 tab 10/30/18 Rx Levothyroxine Sodium [Synthroid 100 mcg PO DAILYDM #30 tab 10/30/18 Rx 100mcg (0.1mg) tablet] Spironolactone [Aldactone 25mg Tab] 50 mg PO DAILY #30 tab 10/30/18 Rx Prescriptions/Medication Reconciliation: New Spironolactone [Aldactone 25mg Tab] 50 mg PO DAILY #30 tab Finasteride [Proscar 5mg Tablet] 5 mg PO DAILY #30 tab Levothyroxine Sodium [Synthroid 100mcg (0.1mg) tablet] 100 mcg PO DAILYDM #30 tab Continued losartan 50 mg tablet 50 mg PO DAILY #30 tab Tamsulosin HCl [Flomax 0.4mg capsule] 0.4 mg PO DAILY Sertraline HCl [Zoloft 100mg tablet] 50 mg PO DAILY Pravastatin Sodium [Pravachol 20mg Tablet] 20 mg PO HS Digoxin [Digoxin 0.125mg Tablet] 125 mcg PO DAILY Carbidopa/Levodopa [Carbidopa-Levo 25-100 mg Odt] 1 each PO BID Aspirin [Aspirin 81mg chewable tab] 81 mg PO DAILY tab.chew Lisinopril [Zestril 5mg Tablet] 5 mg PO DAILY #30 tab Furosemide [Lasix 40mg tablet] 40 mg PO DAILY Memantine HCl [Memantine 5mg Tablet] 5 mg PO BID Rivaroxaban [Xarelto 20mg Tablet] 20 mg PO DAILY Carvedilol [Coreg 3.125mg Tablet] 3.125 mg PO BID Donepezil HCl [Aricept 10mg tablet] 10 mg PO HS Discontinued rivaroxaban 20 mg tablet 20 mg PO 1700 tab Finasteride [Proscar 5mg Tablet] 5 mg PO DAILY Spironolactone [Spironolactone 25mg Tablet] 25 mg PO DAILY Levothyroxine Sodium [Levothyroxine 88mcg (0.088mg) Tab] 88 mcg PO DAILY - Problem Reconciliation Problems Reviewed?: Yes
== END 2018-10-30 10:52 | disposition home or self-care (01) ==
LOC: ER 21:30 → 2ND 21:30
PROVIDERS: ADMIT Emergency Medicine; ATTEND Family Medicine
DX: E78.5 Hyperlipidemia, unspecified; E03.9 Hypothyroidism, unspecified; Z79.02 Long term (current) use of antithrombotics/antiplatelets; N20.0 Calculus of kidney; R18.8 Other ascites; Z86.73 Personal history of transient ischemic attack (TIA), and cerebral infarction without residual deficits; Z79.890 Hormone replacement therapy; I48.2 Chronic atrial fibrillation; Z79.899 Other long term (current) drug therapy; K56.7 Ileus, unspecified; K52.9 Noninfective gastroenteritis and colitis, unspecified; F03.90 Unspecified dementia, unspecified severity, without behavioral disturbance, psychotic disturbance, mood disturbance, and anxiety; F41.8 Other specified anxiety disorders; I50.9 Heart failure, unspecified; I51.7 Cardiomegaly
CPT/HCPCS: 36415; 74021; 74022; 74177; 80048; 80076; 80162; 82150; 83605; 83690; 83735; 83880; 84436; 84443; 84484; 85025; 93005; 96374; 99284; G0378; Q9967